=== PATIENT | male | born 2000 | race African-American/Black ===

== ENCOUNTER 2023-09-17 09:41 | Emergency (ER) | payer MEDICAID ==
[~2023-09-17] VITALS: Ht 180.3 cm; Wt 68.0 kg
[2023-09-17 09:50] VITALS: BP 131/88; PULSE 81; RESP 20; TEMP 98.5; O2SAT 100
[2023-09-17] MEDS ORDERED: TOPUD MT (12:46)
[2023-09-17] MEDS ORDERED: IBUP-2028 MT (12:46)
== END 2023-09-17 13:52 | disposition home or self-care (01) ==
LOC: ER 10:20
DX: S93.602A Unspecified sprain of left foot, initial encounter (principal); X58.XXXA Exposure to other specified factors, initial encounter; Y93.89 Activity, other specified; Y92.89 Other specified places as the place of occurrence of the external cause; Y99.8 Other external cause status
CPT/HCPCS: 73630; 99283; Z7610 ×3